=== PATIENT | male | born 1955 | race Caucasian/White ===

== ENCOUNTER 2024-08-27 07:49 | Outpatient (OUT) | payer MEDICARE, SELFPAY ==
--- OUTSIDE RECORDS SUMMARY | 2024-08-27 07:58 | XMS_ITS | Encounter Summary ---
Author Organization [facility] Address [address] [place] [address] Care Team Providers Care Soaping Department Supervisor Name Role Phone Pham Zuniga MD Primary Care Provider [phone] Encounter Details Date Type Department Care Team (Late st Contact Info) Description 03/27/2024 External Result Encounter [facility] Unsolicited Aurelia Weathers MD [address] [facility] [address] [place] [address] Social History Tobacco Use Types Packs/Day Years Used Date Smoking Tobacco: Never Smokeless Tobacco: Never Alcohol Use Standard Drinks/Week Comments Not Currently 0 (1 standard drink = 0.6 oz pur e alcohol) occ Sex and Gender Information Value Date Recorded Sex Assigned at Not on file Legal Sex Male 7:14 PM EDT Gender Identity Not on file Sexual Orientation Not on file documented as of this encounter Plan of Treatment Not on file documented as of this encounter Procedures Procedure Name Priority Date/Time Associated Diagnosis Comments XR PARANASAL SINUSES 3+ VIEWS 03/27/2024 4:34 PM EST documented in this encounter Results * XR paranasal sinuses 3+ views (03/27/2024 4:34 PM EST) Anatomical Region Laterality Modality Head, Neck Radiographic Zhane ging 03/27/2024 4:34 PM EST Impressions 03/27/2024 4:48 PM EST NO ACUTE CARDIOPULMONARY ABNORMALITY. NO PARANASAL SINUS AIR-FLUID LEVELS. QUESTION ARTIFACT VERSUS POSSIBLE THICKENING LEFT FRONTAL SINUS, QUESTION OSTEOMA, CONSIDER CT Impression dictated by: Rico Madrigal M.D.03/27/2024 4:46 PM Dictation Location: [place] [address] Transcribed By: [facility] 03/27/24 0926 Dictated By: Rico Madrigal MD 03/27/24 1634 Signed By: <Electronically signed by Rico Madrigal MD in [place]> 03/27/24 1646 Narrative 03/27/2024 4:48 PM EST [facility] Main [address] [address] XRay Report Signed Patient: Otoniel Starr MR#: [id number] : 1955 Acct:[id number] Age/Sex: 69 / M ADM Date: 03/27/24 Loc: ICXD Room: Type: REG CLI Attending Dr: Aurelia Weathers Jr, MD Copies to: AURELIA WEATHERS MD Ordering Provider: AURELIA WEATHERS MD Date of Service: 03/27/24 XR/XR chest 2V*: R05.3 ([id number]) XR/XR sinus min 3V*: J32.9 PA AND LATERAL CHEST/4 VIEWS OF THE SINUSES.: CLINICAL HISTORY: Chronic sinusitis, chronic cough chronic ear infections COMPARISON: None FINDINGS: Heart normal size. Lungs are clear. No effusion or pneumothorax. Paranasal sinuses are well aerated. No sinus air-fluid levels. Question summation artifact versus possible osteoma left frontal sinus. XR/XR chest 2V* Procedure Note Radiology, Radiologist, MD - 03/27/[address] [address] XRay Report Signed Patient: Otoniel Starr EMR#: [id number] : 1955cct:[id number] Age/Sex: 69 / MADM Date: 03/27/24 Loc: ICXD Room:Type: REG CLI Attending Dr: Aurelia Weathers Jr, MD Copies to: AURELIA WEATHERS MD Ordering Provider: AURELIA WEATHERS MD Date of Service: 03/27/24 XR/XR chest 2V*: R05.3 ([id number]) XR/XR sinus min 3V*: J32.9 PA AND LATERAL CHEST/4 VIEWS OF THE SINUSES.: CLINICAL HISTORY: Chronic sinusitis, chronic cough chronic ear infections COMPARISON: None FINDINGS: Heart normal size. Lungs are clear. No effusion or pneumothorax. Paranasal sinuses are well aerated. No sinus air-fluid levels. Questionsummation artifact versus possible osteoma left frontal sinus. XR/XR chest 2V* IMPRESSION: NO ACUTE CARDIOPULMONARY ABNORMALITY. NO PARANASAL SINUS AIR-FLUID LEVELS. QUESTION ARTIFACT VERSUS POSSIBLETHICKENING LEFT FRONTAL SINUS, QUESTION OSTEOMA, CONSIDER CT Impression dictated by: Rico Madrigal M.D.03/27/2024 4:46 PM Dictation Location: [facility]- Transcribed By: [facility] 03/27/24 1646 Dictated By: Rico Madrigal MD 03/27/24 1634 Signed By: <Electronically signed by Rico Madrigal MD in [place]> 03/27/24 1646 Aurelia Weathers MD IMG XR PROCEDURES Final Resul t documented in this encounter Visit Diagnoses Not on filedocumented in this encounter Care Teams Soaping Department Supervisor Relationship Specialty Start Date End Date Pham Zuniga MD [address] [place] [address] PCP - General Family Medicine 05/21/24 documented as of this encounter
--- OUTSIDE RECORDS SUMMARY | 2024-08-27 07:58 | XMS_ITS | Clinical Summary ---
Author Organization [facility] Address [address] [place] [address] Care Team Providers Care Manager Food Beverage Name Role Phone Pham Zuniga MD Primary Care Provider [phone] Allergies Active Allergy Reactions Criticality Noted Date Comments Baclofen Unknown 03/26/2024 Nsaids Unknown 03/26/2024 Medications amitriptyline (Elavil) 50 MG tablet 5 Active cloNIDine (Catapres) 0.3 MG tablet 5 Active dicyclomine (Bentyl) 20 MG tablet 4 Active gabapentin (Neurontin) 300 MG capsule Take 600 mg by mouth in the morning and 600 mg before bedtime. 5 Active HYDROcodone-acet aminophen (Boswell) 5-325 MG tablet 1 tablet 5 Active meloxicam (Mobic) 15 MG tablet 5 Active montelukast (Singulair) 10 MG tablet 5 Active zolpidem (Ambien) 5 MG tablet 5 Active omeprazole (PriLOSEC) [address] Juaquin ns:LPRD (laryngopharynge al reflux disease) Take 1 capsule (40 mg) by mouth in the morning. Take before meals. Do not crush or chew.. 90 capsule 5 Active famotidine (Pepcid) 20 MG tabletIndication s:LPRD (laryngopharynge al reflux disease) Take 1 tablet (20 mg) by mouth at bedtime 90 tablet 5 Active fluticasone (Flonase) 50 MCG/ACT nasal sprayIndications :Chronic sinusitis, unspecified location Administer 2 sprays into each nostril Daily Shake gently. Before first use, prime pump. After use, clean tip and replace cap. 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 Psychosis 03/24/2024 Reflex sympathetic dystrophy 03/24/2024 Rotator cuff tendonitis 03/24/2024 Sinusitis, acute maxillary 03/24/2024 Trouble swallowing 03/24/2024 Anxiety 02/22/2009 Depressive disorder 02/22/2009 Family History Medical History Relation Name Comments Diabetes Mother Relation Name Status Comments Father Mother Alive Social History Tobacco Use Types Packs/Day Years Used Date Smoking Tobacco: Never Smokeless Tobacco: Never Tobacco Cessation:Counseling Given: Not Answered Alcohol Use Standard Drinks/Week Comments Not Currently 0 (1 standard drink = 0.6 oz pur e alcohol) occ Sex and Gender Information Value Date Recorded Sex Assigned at Not on file Legal Sex Male 7:14 PM EDT Gender Identity Not on file Sexual Orientation Not on file Last Filed Vital Signs Vital Sign Reading Time Taken Comments Blood Pressure 145/93 05/21/2024 9:04 AM EDT Pulse 92 05/21/2024 9:04 AM EDT Temperature - - Respiratory Rate - - Oxygen Saturation - - Inhaled Oxygen Concentration - - Weight 120 kg (265 lb) 05/21/2024 9:04 AM EDT Height 177.8 cm (5' 10 ) 05/21/2024 9:04 AM EDT Body Mass Index 38.02 05/21/2024 9:04 AM EDT Plan of Treatment Health Maintenance Due Date Last Done Comments CT Colonography 1955 Colonoscopy 1955 Colorectal Cancer Screening 1955 FIT-DNA 1955 FIT 1955 FOBT 1955 Sigmoidoscopy 1955 Influenza Vaccine (#1) 2024 4, 11/23/2022, 11/22/2021, Additional history exists Pneumococcal Vaccine: 65+ Years Completed 2, 08/09/2021 Insurance MEDICARE AET Care Teams Manager Food Beverage Relationship Specialty Start Date End Date Pham Zuniga MD [address] [place] [id number] PCP - General Family Medicine 05/21/24
[2024-08-27 08:28] LABS: Hematocrit 47.1 % (42.0-54.0); Hemoglobin 15.4 g/dL (14.0-18.0); Immature Granulocytes Abs Auto 0.01 10^3/uL (0.00-0.03); Immature Granulocytes Pct Auto 0.2 % (0.0-0.5); Lymphocytes Absolute Auto 1.8 10^3/uL (1.2-3.8); Mean Corpuscular HGB Conc 32.7 g/dL (29.9-35.2); Mean Corpuscular Hemoglobin 27.2 pg (25.9-34.0); Mean Corpuscular Volume 83.1 fL (80.0-94.0); Platelet Count 188 10^3/uL (150-450); Red Blood Count 5.67 10^6/uL (4.70-6.10); White Blood Count 5.6 10^3/uL (4.0-11.0)
[2024-08-27 11:36] LABS: Alanine Aminotransferase 49 U/L (16-63); Albumin Globulin Ratio 0.9; Albumin Level 3.5 g/dL (3.4-5.0); Alkaline Phosphatase 85 U/L (46-116); Anion Gap 8.7; Aspartate Amino Transferase 25 U/L (15-37); Blood Urea Nitrogen 23.0 mg/dL (7.0-18.0); Calcium 9.3 mg/dL (8.5-10.1); Carbon Dioxide 32.7 mmol/L (21.0-32.0); Chloride 102 mmol/L (98-107); Cholesterol 223 mg/dL (<=200); Estimated GFR (African America >60 (>=60 mL/min/1.73m^2); Estimated GFR (Non-African Ame >60 (>=60 mL/min/1.73m^2); Globulin 3.7 g/dL; Glucose 115 mg/dL (74-106); HDL Cholesterol 74 mg/dL (40-60); Potassium 4.4 mmol/L (3.5-5.1); Sodium 139 mmol/L (136-145); Total Protein 7.2 g/dL (6.4-8.2); Triglycerides 137 mg/dL (<=150); VLDL CHOLESTEROL 27.4 mg/dL
== END 2024-08-27 07:50 | disposition home or self-care (01) ==
PROVIDERS: PCP Family Medicine; Visit Provider Family Medicine
DX: I10 Essential (primary) hypertension (principal); Z12.5 Encounter for screening for malignant neoplasm of prostate
CPT/HCPCS: 36415; 80053; 80061; 82043; 82570; 85025; G0103